=== PATIENT | female | born 1935 | race Caucasian/White ===

== ENCOUNTER 2018-05-14 17:30 | Emergency (ER) | payer BC, OTHER ==
[~2018-05-14] VITALS: Ht 154.9 cm; Wt 61.2 kg
[2018-05-14 19:35] VITALS: BP 130/54
== END 2018-05-14 19:35 | disposition home or self-care (01) ==
LOC: ED 17:30
DX: S01.01XA Laceration without foreign body of scalp, initial encounter (principal); I10 Essential (primary) hypertension; F03.90 Unspecified dementia, unspecified severity, without behavioral disturbance, psychotic disturbance, mood disturbance, and anxiety; W18.30XA Fall on same level, unspecified, initial encounter; Y93.89 Activity, other specified; Y92.89 Other specified places as the place of occurrence of the external cause; Y99.8 Other external cause status

== ENCOUNTER 2018-10-20 04:42 | Emergency (ER) | payer BC, OTHER ==
[~2018-10-20] VITALS: Ht 152.4 cm; Wt 59.0 kg
[2018-10-20 04:50] VITALS: Ht 152.4 cm; Wt 59.0 kg
[2018-10-20 07:16] LABS: CALCIUM 8.6 mg/dL (8.5-10.1); CARBON DIOXIDE 23.4 mmol/L (21-32); CHLORIDE SERUM 109 mmol/L (98-107); GLUCOSE SERUM 83 mg/dL (74-106); POTASSIUM SERUM 3.3 mmol/L (3.5-5.1); SODIUM SERUM 144 mmol/L (136-145)
[2018-10-20 07:21] LABS: ALBUMIN 2.7 g/dL (3.4-5.0); ALKALINE PHOSPHATASE 72 U/L (46-116); ALT/SGPT 14 U/L (14-59); AST/SGOT 18 U/L (15-37); BILIRUBIN TOTAL 0.53 mg/dL (0.20-1.00); TOTAL PROTEIN, SERUM 6.6 g/dL (6.4-8.2)
[2018-10-20 08:20] LABS: BASOPHIL % 0.5 % (0-2); PLATELET COUNT 261 x10^3mcL (130-400)
[2018-10-20 08:21] LABS: RED CELL DISTRIBUTION WIDTH 16.8 % (11.5-14.5)
[2018-10-20 10:01] VITALS: BP 152/53
== END 2018-10-20 10:01 | disposition home or self-care (01) ==
LOC: ED 04:42
PROVIDERS: Emergency Medicine
DX: F41.9 Anxiety disorder, unspecified (principal); I10 Essential (primary) hypertension; F03.90 Unspecified dementia, unspecified severity, without behavioral disturbance, psychotic disturbance, mood disturbance, and anxiety
CPT/HCPCS: 36415; Q0092